=== PATIENT | female | born 1935 | race Caucasian/White ===

== ENCOUNTER 2018-08-24 12:07 | Emergency (ER) | payer OTHER ==
[~2018-08-24] VITALS: Ht 147.3 cm; Wt 77.1 kg
[~2018-08-24 12:07] MED LIST: ASA81 MG; ATENOLOL100 MG; CAPOTEN50 MG PO; CAPTOPRIL5 GM; CARDURA 2 MG; CARDURA1 MG; CENTRUM CARDIO; GAVISCON; OMEGA-31000 MG PO; TENORMIN25 MG PO; ZANTAC300 MG PO
[2018-08-24] MEDS ORDERED: LYRICA50 MG PO (12:39)
== END 2018-08-25 02:10 | disposition home or self-care (01) ==
LOC: ER 12:07
DX: J45.901 Unspecified asthma with (acute) exacerbation (principal); J11.1 Influenza due to unidentified influenza virus with other respiratory manifestations

== ENCOUNTER 2018-11-15 17:41 | Emergency (ER) | payer OTHER ==
[~2018-11-15] VITALS: Ht 149.9 cm; Wt 77.1 kg
[~2018-11-15 17:41] MED LIST changes: +LYRICA50 MG PO
== END 2018-11-15 21:22 | disposition home or self-care (01) ==
LOC: ER 17:41
DX: S00.03XA Contusion of scalp, initial encounter (principal); W01.198A Fall on same level from slipping, tripping and stumbling with subsequent striking against other object, initial encounter; Y93.89 Activity, other specified; Y92.018 Other place in single-family (private) house as the place of occurrence of the external cause; Y99.8 Other external cause status